=== PATIENT | male | born 1970 | race African-American/Black ===

== ENCOUNTER 2018-06-09 17:38 | Emergency (ER) | payer SELFPAY ==
[2018-06-09] MEDS ORDERED: Adacel (T-DAP) 0.5 ML VIAL ONE ×2 (18:11→18:20)
[2018-06-09] MEDS ORDERED: Bacitracin Zinc 1 Packet ONE ×2 (18:38→18:45)
== END 2018-06-09 19:09 | disposition home or self-care (01) ==
LOC: ERS 17:38
DX: S51.811A Laceration without foreign body of right forearm, initial encounter (principal); F17.210 Nicotine dependence, cigarettes, uncomplicated; W26.8XXA Contact with other sharp object(s), not elsewhere classified, initial encounter
CPT/HCPCS: 12002; 90471; 90715

== ENCOUNTER 2019-02-07 00:40 | Emergency (ER) | payer SELFPAY ==
[2019-02-07] MEDS ORDERED: Lorazepam 2 MG/ML VIAL ONE (00:58)
[2019-02-07 01:21] LABS: ALT (SGPT) 42 U/L (8-55); AST (SGOT) 72 U/L (5-34); Acetaminophen Less than 6.0 mcg/mL (10.0-30.0); Albumin 4.6 g/dL (3.5-5.0); Alcohol 16 mg/dL (Less than 10); Alkaline Phosphatase 115 U/L (40-150); Anion Gap 28 mmol/L (10-20); BUN (Urea Nitrogen) 8 mg/dL (8.9-20.6); Band 1 % (5-11); Bilirubin, Total 0.4 mg/dL (0.2-1.2); Calc. Creatinine Clearance 0 mL/min (70-130); Calcium 9.2 mg/dL (7.8-10.44); Carbon Dioxide 12 mmol/L (22-29); Chloride 95 mmol/L (98-107); Estimated GFR-MDRD 64; Globulin 3.7 g/dL (2.4-3.5); Glucose 200 mg/dL (70-105); Hemoglobin 12.3 g/dL (14.0-18.0); Hypochromia SLIGHT = 6-15 cells (100X) (0-5/hpf); Lymphocytes 50 % (21-51); MDiff Complete? YES; Mean Corpuscular HGB CONC 32.8 g/dL (32.0-36.0); Mean Corpuscular Hemoglobin 34.8 pg (27.0-31.0); Mean Platelet Volume 6.9 fL (7.4-10.4); Monocytes 3 % (0-10); Neutrophil 41 % (42-75); Platelet Count 328 thou/uL (130-400); Platelet Morphology Comment Appears Adequate; Potassium 3.6 mmol/L (3.5-5.1); Protein, Total 8.3 g/dL (6.0-8.3); RBC Distribution Width 12.5 % (11.5-14.5); Reactive Lymphocytes 5 % (0-10); Red Blood Cell (RBC) Count 3.54 mill/uL (4.70-6.10); Salicylate Less than 8.0 mg/dL (15.0-30.0); Sodium 131 mmol/L (136-145)
== END 2019-02-07 02:22 ==
LOC: ERS 00:40
DX: F16.10 Hallucinogen abuse, uncomplicated (principal); N17.9 Acute kidney failure, unspecified; E11.65 Type 2 diabetes mellitus with hyperglycemia; M62.82 Rhabdomyolysis; Z71.6 Tobacco abuse counseling; F17.210 Nicotine dependence, cigarettes, uncomplicated
CPT/HCPCS: 80053; 80307; 82550; 85025; 93005; 96361; 96374; 99406; J2060

== ENCOUNTER 2019-11-27 12:12 | Emergency (ER) | payer SELFPAY ==
--- NOTE | 2019-11-27 12:29 | RAD ---
EXAM: 3 views of the left foot HISTORY: Foot pain COMPARISON: None FINDINGS: 3 views of the left foot shows no evidence of acute fracture or dislocation. No soft tissue swelling is seen. No degenerative changes are present. IMPRESSION: No evidence of acute osseous abnormality.
== END 2019-11-27 14:33 | disposition home or self-care (01) ==
LOC: ERS 12:12
DX: S90.32XA Contusion of left foot, initial encounter (principal); F17.210 Nicotine dependence, cigarettes, uncomplicated; Z71.6 Tobacco abuse counseling; W50.0XXA Accidental hit or strike by another person, initial encounter
CPT/HCPCS: 99406

== ENCOUNTER 2021-03-22 17:14 | Emergency (ER) | payer SELFPAY ==
[2021-03-22] MEDS ORDERED: Haloperidol Lactate 5 MG/ML VIAL ONE (17:22)
[2021-03-22] MEDS ORDERED: diphenhydrAMINE 50 MG/ML VIAL ONE (17:23)
[2021-03-22] MEDS ORDERED: Lorazepam 2 MG/ML VIAL ONE (17:23)
[2021-03-22] MEDS ORDERED: Midazolam HCl 5 mg/ml Vial ONE ×2 (17:42→21:16)
[2021-03-22 18:21] LABS: #Basophils 0.1 thou/uL (0.0-0.2); #Eosinphils 0.1 thou/uL (0.0-0.7); #Lymphocytes 3.5 thou/uL (1.20-3.40); #Monocytes 0.8 thou/uL (0.11-0.59); #Neutrophils 6.8 thou/uL (1.40-6.50); %Basophils 0.7 % (0.0-1.0); %Eosinophils 1.1 % (0.0-10.0); %Lymphocytes 31.1 % (21.0-51.0); %Neutrophils 60.1 % (42.0-75.0); Hemoglobin 13.5 g/dL (14.0-18.0); Mean Corpuscular HGB CONC 33.5 g/dL (32.0-36.0); Mean Corpuscular Hemoglobin 32.9 pg (27.0-31.0); Mean Corpuscular Volume 98.1 fL (78.0-98.0); Mean Platelet Volume 7.6 fL (7.4-10.4); Platelet Count 270 thou/uL (130-400); Red Blood Cell (RBC) Count 4.09 mill/uL (4.70-6.10); White Blood Cell (WBC) Count 11.3 thou/uL (4.8-10.8)
[2021-03-22 18:27] LABS: Bacteria/HPF 1+ HPF (None Seen); Bilirubin Negative (Negative); Blood, Urine Trace (Negative); Clarity Clear (Clear); Glucose, Urine (Dipstick) Normal (Negative); Ketone, Urine Negative (Negative); Leukocyte 25 Leu/uL (Negative); Nitrite 2+ (Negative); Protein, Urine (Dipstick) Negative (Neg-Trace); RBC/HPF None Seen HPF (0-3); Specific Gravity, Urine 1.006 (1.002-1.036); Squamous Epithelial None Seen HPF (0-3); Urobilinogen Normal mg/dL (Less than 2); WBC/HPF 0-3 HPF (0-3); pH, Urine 5.5 (5.0-9.0)
[2021-03-22 18:41] LABS: ALT (SGPT) 18 U/L (8-55); AST (SGOT) 32 U/L (5-34); Albumin 4.6 g/dL (3.5-5.0); Alkaline Phosphatase 113 U/L (40-110); Anion Gap 25 mmol/L (10-20); BUN (Urea Nitrogen) 8 mg/dL (8.9-20.6); Bilirubin, Total 0.6 mg/dL (0.2-1.2); CK (CPK) 752 U/L (30-200); Calc. Creatinine Clearance 0 mL/min (70-130); Calcium 9.5 mg/dL (7.8-10.44); Carbon Dioxide 14 mmol/L (22-29); Chloride 91 mmol/L (98-107); Globulin 4.3 g/dL (2.4-3.5); Glucose 95 mg/dL (70-105); Potassium 3.9 mmol/L (3.5-5.1); Protein, Total 8.9 g/dL (6.0-8.3); Sodium 126 mmol/L (136-145)
[2021-03-22 20:40] LABS: Anion Gap 19 mmol/L (10-20); BUN (Urea Nitrogen) 8 mg/dL (8.9-20.6); Calc. Creatinine Clearance 0 mL/min (70-130); Calcium 8.1 mg/dL (7.8-10.44); Carbon Dioxide 15 mmol/L (22-29); Chloride 99 mmol/L (98-107); Glucose 90 mg/dL (70-105); Sodium 129 mmol/L (136-145)
[2021-03-22] MEDS ORDERED: Lidocaine 1% w/Epinephrine 1:100K 20 ML VIAL ONE (22:05)
== END 2021-03-22 23:55 | disposition home or self-care (01) ==
LOC: ERS 17:14
DX: T40.991A Poisoning by other psychodysleptics [hallucinogens], accidental (unintentional), initial encounter (principal); S01.412A Laceration without foreign body of left cheek and temporomandibular area, initial encounter; S01.81XA Laceration without foreign body of other part of head, initial encounter; E86.0 Dehydration; F17.210 Nicotine dependence, cigarettes, uncomplicated; R61 Generalized hyperhidrosis; W06.XXXA Fall from bed, initial encounter
CPT/HCPCS: 36415; 51701; 70450; 71045; 80053; 81003; 81015; 82550; 85025; 93005; 96372; 96374; J1200; J1630; J2060; J2250

== ENCOUNTER 2021-06-21 19:26 | Emergency (ER) | payer SELFPAY | END 2021-06-21 20:06 | disposition home or self-care (01) | LOC: ERS 19:26 | DX: Z02.89 Encounter for other administrative examinations (principal); F17.210 Nicotine dependence, cigarettes, uncomplicated | CPT/HCPCS: 99282 ==

== ENCOUNTER 2025-09-15 13:32 | Emergency (ER) | payer SELFPAY | END 2025-09-15 14:03 | LOC: ERS 13:32 | DX: Z00.00 Encounter for general adult medical examination without abnormal findings (principal); F17.210 Nicotine dependence, cigarettes, uncomplicated; Z55.6 Problems related to health literacy | CPT/HCPCS: 99282 ==